=== PATIENT | male | born 1945 | race Caucasian/White ===

== ENCOUNTER 2019-04-14 12:09 | Inpatient (IN) | payer OTHER, MEDICARE, BC ==
[~2019-04-14] VITALS: Ht 172.7 cm; Wt 96.0 kg
[2019-04-14 13:15] LABS: BASOPHILS ABSOLUTE AUTO 0.04 K/mm3 (0.00-0.23); BASOPHILS PERCENT AUTO 1 % (0-2); EOSINOPHILS ABSOLUTE AUTO 0.25 K/mm3 (0.00-0.68); EOSINOPHILS PERCENT AUTO 4 % (0-6); Hemoglobin 12.5 g/dL (13.5-17.5); IMMATURE GRAN ABSOLUTE AUTO 0.01 K/mm3 (0.00-0.10); IMMATURE GRAN PERCENT AUTO 0 % (0-1); LYMPHOCYTES PERCENT AUTO 31 % (21-46); MONOCYTES ABSOLUTE AUTO 0.46 K/mm3 (0.16-1.47); MONOCYTES PERCENT AUTO 7 % (4-13); Mean Corpuscular HGB 33.9 pg (26.0-34.0); Mean Corpuscular HGB Conc 33.8 g/dL (31.5-36.5); Mean Corpuscular Volume 100 fL (80-100); Mean Platelet Volume 11.3 fL (9.1-12.4); NEUTROPHILS ABSOLUTE AUTO 3.77 K/mm3 (1.96-9.15); NEUTROPHILS PERCENT AUTO 58 % (41-73); Platelet Count 148 K/mm3 (150-400); RDW Standard Deviation 47.6 fL (35.1-46.3); Red Blood Cell Count 3.69 M/mm3 (4.30-5.90); White Blood Cell Count 6.53 K/mm3 (4.00-11.30)
[2019-04-14 13:37] LABS: Alanine Aminotransfer (ALT/SGP 21 U/L (12-78); Albumin, Blood 3.2 g/dL (3.4-5.0); Albumin/Globulin Ratio 0.9 (0.8-1.8); Alk Phos 71 U/L (50-136); Anion Gap 5 mmol/L (6-16); Aspartate Aminotrans (AST/SGOT 21 U/L (12-37); Bilirubin, Total 0.6 mg/dL (0.1-1.0); Blood Urea Nitrogen 17 mg/dL (8-24); Bun/Creatinine Ratio 17.9 (12.0-20.0); CO2, Blood 26 mmol/L (21-32); Calcium, Blood 8.8 mg/dL (8.5-10.1); Chloride, Blood 112 mmol/L (98-108); Creatinine, Blood 0.95 mg/dL (0.60-1.20); Globulin, Blood 3.6 g/dL (2.2-4.0); Glomerular Filtration Rate >60 (60-); Glucose, Blood 117 mg/dL (70-99); Potassium, Blood 3.8 mmol/L (3.5-5.5); Sodium, Blood 143 mmol/L (136-145); Total Protein, Blood 6.8 g/dL (6.4-8.2); Troponin I 0.039 ng/mL (0.000-0.040)
[2019-04-14] MEDS ORDERED: [UNRECOGNIZED DRUG - OTHER] BOTHEYES (13:40)
[2019-04-14] MEDS ORDERED: Vitamin D2000 UNIT PO (13:42)
[2019-04-14 13:50] LABS: International Normalized Ratio 1.15
[2019-04-14] MEDS ORDERED: DOXE10 PO (13:57)
[2019-04-14] MEDS ORDERED: Preparation H C26 GM PR (13:59)
[2019-04-14] MEDS ORDERED: RECTIV30 GM TOP (14:01)
[2019-04-14] MEDS ORDERED: OXYC5 PO (14:02)
[2019-04-14] MEDS ORDERED: Pravachol40 MG PO (14:02)
[2019-04-14] MEDS ORDERED: Hytrin2 MG PO (14:03)
[2019-04-14] MEDS ORDERED: METAMUCIL660 GM PO (14:04)
[2019-04-14 15:49] LABS: CHOL/HDL RATIO 4.1; Cholesterol 131 mg/dL (50-200); HDL Cholesterol 32 mg/dL (>39); LDL/HDL RATIO 2.7; Low Density Lipoprotein Chol 86 mg/dL (0-110); Triglycerides 63 mg/dL (30-160); Very Low Density Lipoprot Chol 12 mg/dL (6-32)
--- NOTE | 2019-04-14 16:03 | NUR ---
ECHOCARDIOGRAM COMPLETE
[2019-04-14] MEDS ORDERED: Colace100 MG PO (16:36)
--- NOTE | 2019-04-14 16:41 | NUR ---
PT ARRIVED TO ROOM VIA STRETCHER ACCOMPANIED BY EXTERMINATION SUPERVISOR AND SPOUSE; AWAKE ALERT AND IN NO ACUTE DISTRESS. PT AND SPOUSE VERBALIZED UNDERSTANDING OF FREQUENT ROUNDING. BED LOW AND IN LOCKED POSITION CALL LIGHT WITHIN REACH.
--- NOTE | 2019-04-14 17:16 | NUR ---
HEPARIN GTT STOPPED PER PHARMACY ORDER. CRITICAL PTT 132.[address] NICHOLSON. TO RESTART HEPARIN IN 1 HOUR AT RATE MANAGED BY PHARMACY.
--- NOTE | 2019-04-14 18:07 | NUR ---
SHIFT SUMMARY ADMIT THIS AFTERNOON @1620. PE AND DVT. NITROPASTE TO CW. A AND OX3 INDEPENDENT/STANDBY ASSIST DUE TO RECENT LEFT KNEE SURGERY. HEPARIN GTT PAUSED 1 HOUR THIS SHIFT DUE TO CRITICALLY HIGH PTT TO BE RESUMED AT LOWER RATE. SPOUSE AT BEDSIDE AND TO STAY WITH PATIENT OVERNIGHT. SENT HERE FROM [facility] AFTER HAVING SOB X3 MONTHS.
--- NOTE | 2019-04-14 18:39 | NUR ---
DISCONTINUED LAC FIELD START IV; CATHETER INTACT. SITE WNL PRESSURE APPLIED WITH GAUZE, COBAN.
[2019-04-15 05:01] LABS: BASOPHILS ABSOLUTE AUTO 0.04 K/mm3 (0.00-0.23); BASOPHILS PERCENT AUTO 1 % (0-2); EOSINOPHILS ABSOLUTE AUTO 0.26 K/mm3 (0.00-0.68); EOSINOPHILS PERCENT AUTO 4 % (0-6); Hematocrit 36.9 % (37.0-53.0); Hemoglobin 12.2 g/dL (13.5-17.5); IMMATURE GRAN ABSOLUTE AUTO 0.01 K/mm3 (0.00-0.10); IMMATURE GRAN PERCENT AUTO 0 % (0-1); LYMPHOCYTES ABSOLUTE AUTO 1.96 K/mm3 (0.84-5.20); LYMPHOCYTES PERCENT AUTO 30 % (21-46); MONOCYTES ABSOLUTE AUTO 0.51 K/mm3 (0.16-1.47); MONOCYTES PERCENT AUTO 8 % (4-13); Mean Corpuscular HGB Conc 33.1 g/dL (31.5-36.5); Mean Platelet Volume 11.4 fL (9.1-12.4); NEUTROPHILS ABSOLUTE AUTO 3.78 K/mm3 (1.96-9.15); NEUTROPHILS PERCENT AUTO 58 % (41-73); Platelet Count 142 K/mm3 (150-400); RDW Coefficient Variation 13.2 % (11.7-14.2); RDW Standard Deviation 49.8 fL (35.1-46.3); Red Blood Cell Count 3.59 M/mm3 (4.30-5.90); White Blood Cell Count 6.56 K/mm3 (4.00-11.30)
[2019-04-15 05:02] LABS: Mean Corpuscular Volume 103 fL (80-100)
[2019-04-15 05:18] LABS: Anion Gap 8 mmol/L (6-16); Blood Urea Nitrogen 17 mg/dL (8-24); Bun/Creatinine Ratio 17.1 (12.0-20.0); CO2, Blood 24 mmol/L (21-32); Calcium, Blood 8.6 mg/dL (8.5-10.1); Chloride, Blood 112 mmol/L (98-108); Creatinine, Blood 0.99 mg/dL (0.60-1.20); Glomerular Filtration Rate >60 (60-); Glucose, Blood 108 mg/dL (70-99); Potassium, Blood 4.1 mmol/L (3.5-5.5); Sodium, Blood 144 mmol/L (136-145)
--- NOTE | 2019-04-15 15:48 | NUR ---
SUMMARY PT IS A/O X4, PLEASANT AFFECT. UP IND IN ROOM. @ BEDSIDE, ASSISTS WITH CARE, ASSIST WITH SHOWER TODAY. PT STATE NO DYSPNEA OR SOB R/T BILAT PE. STATE BACK L KNEE TENDERNESS HOWEVER NOT PAINFUL, STATE NO NEED FOR PAIN MED TODAY. L KNEE CONTINUES SWOLLEN S/P REPLACEMENT SURG HOWEVER NO S/S INFECTION. HEP GTT INCREASED TO 27.5 ML/HR THIS AFTERNOON, PHARMACY MANAGING. INR 1.15. VSS.
--- NOTE | 2019-04-16 04:53 | NUR ---
AUTOMOBILE MECHANIC SUMMARY NO ACUTE CHANGES THIS SHIFT. PT AAOX4 AND INDEPENDENT IN ROOM. AT BEDSIDE THROUGH THE NIGHT. PT DENIES SOB, LUNGS CLEAR. PT STARTED ON XARELTO, FIRST DOSE GIVEN AT 0000. HEPARIN DRIP STOPPED AT THAT TIME PER MD ORDERS, PHARMACY NOTIFIED. VSS, WILL CONTINUE TO MONITOR.
[2019-04-16 08:46] LABS: BASOPHILS ABSOLUTE AUTO 0.04 K/mm3 (0.00-0.23); BASOPHILS PERCENT AUTO 1 % (0-2); EOSINOPHILS ABSOLUTE AUTO 0.21 K/mm3 (0.00-0.68); EOSINOPHILS PERCENT AUTO 4 % (0-6); Hematocrit 37.6 % (37.0-53.0); Hemoglobin 12.5 g/dL (13.5-17.5); IMMATURE GRAN ABSOLUTE AUTO 0.02 K/mm3 (0.00-0.10); IMMATURE GRAN PERCENT AUTO 0 % (0-1); LYMPHOCYTES ABSOLUTE AUTO 1.27 K/mm3 (0.84-5.20); LYMPHOCYTES PERCENT AUTO 26 % (21-46); MONOCYTES ABSOLUTE AUTO 0.37 K/mm3 (0.16-1.47); MONOCYTES PERCENT AUTO 8 % (4-13); Mean Corpuscular HGB 33.7 pg (26.0-34.0); Mean Corpuscular HGB Conc 33.2 g/dL (31.5-36.5); Mean Corpuscular Volume 101 fL (80-100); Mean Platelet Volume 11.3 fL (9.1-12.4); NEUTROPHILS PERCENT AUTO 61 % (41-73); Platelet Count 154 K/mm3 (150-400); RDW Coefficient Variation 13.2 % (11.7-14.2); RDW Standard Deviation 49.1 fL (35.1-46.3); Red Blood Cell Count 3.71 M/mm3 (4.30-5.90); White Blood Cell Count 4.91 K/mm3 (4.00-11.30)
[2019-04-16 09:07] LABS: Anion Gap 6 mmol/L (6-16); Blood Urea Nitrogen 13 mg/dL (8-24); Bun/Creatinine Ratio 13.2 (12.0-20.0); CO2, Blood 26 mmol/L (21-32); Calcium, Blood 8.8 mg/dL (8.5-10.1); Chloride, Blood 110 mmol/L (98-108); Creatinine, Blood 0.98 mg/dL (0.60-1.20); Glomerular Filtration Rate >60 (60-); Glucose, Blood 108 mg/dL (70-99); Potassium, Blood 4.1 mmol/L (3.5-5.5); Sodium, Blood 142 mmol/L (136-145)
[2019-04-16] MEDS ORDERED: MIRALAX17 GM PO (15:30)
[2019-04-16] MEDS ORDERED: XARELTO15 MG PO (15:31)
--- NOTE | 2019-04-16 16:31 | NUR ---
DISCHARGE PT TAKEN OFF HEPARIN GTT LAST NOC, STARTED ON XARELTO. HE STATE NO SOB @ REST, STATE MINIMAL PAIN BACK OF L KNEE. ENCOURAGED PT TO AMBULATE IN [place], HE IS AGREEABLE, UP W FWW, GAIT STEADY, HOWEVER FAVORS LLE, ACCOMPANY HIM ON WALK. DR HOLLINGSWORTH IN TO SEE HIM THIS AFTERNOON, ORDER HOME O2 EVAL. RT UP FOR EVAL STATE PT NOT REQUIRE O2. DR PT MAY GO HOME, HE STATE FEELS READY FOR D/C, ORDERS PLACED. IV D/C INTACT, TELE D/C. SCRIPTS SENT TO [facility]REQUEST. D/C INSTRUCT PROVIDED. W/C ESCORT FROM HOSP PROVIDED. PT IS PLEASANT/APPRECIATIVE.
== END 2019-04-16 16:20 | disposition home or self-care (01) | DRG 175 ==
LOC: ER 12:09 → MEDS 12:10 → ENPENDDIS 04-16 15:07 → MEDS 04-16 16:20
PROVIDERS: Emergency Medicine; Internal Medicine; ADMIT Internal Medicine
DX: I26.99 Other pulmonary embolism without acute cor pulmonale (principal); J96.01 Acute respiratory failure with hypoxia; E78.5 Hyperlipidemia, unspecified; G47.33 Obstructive sleep apnea (adult) (pediatric); D64.9 Anemia, unspecified; N40.0 Benign prostatic hyperplasia without lower urinary tract symptoms; Z87.891 Personal history of nicotine dependence; Z79.899 Other long term (current) drug therapy
CPT/HCPCS: 36415; 80048; 80053; 80061; 83036; 84484; 85025; 85610; 85730; 93005; 93010; 93306; 93970; 96374; 99285-25; G0378; J1644

== ENCOUNTER → 2021-01-26 | Outpatient (CLI) | payer BC ==
[~2021-01-26] MED LIST: Colace100 MG PO; DOXE10 PO; Hytrin2 MG PO; METAMUCIL660 GM PO; MIRALAX17 GM PO; OXYC5 PO; Pravachol40 MG PO; Preparation H C26 GM PR; RECTIV30 GM TOP; Vitamin D2000 UNIT PO; XARELTO15 MG PO; [UNRECOGNIZED DRUG - OTHER] BOTHEYES
== END | disposition home or self-care (01) ==
LOC: LAB SHORT 12:00 → LAB 12:00
DX: R10.13 Epigastric pain (principal)
CPT/HCPCS: 87338